=== PATIENT | female | born 1990 | race Caucasian/White ===

== ENCOUNTER 2018-04-15 05:30 | Inpatient (IN) | payer SELFPAY ==
[2018-04-15] MEDS ORDERED: MISOPROSTOL 200 MCG TAB PR ×2 (06:30→10:00)
[2018-04-15] MEDS ORDERED: CARBOPROST 250 MCG INJ IM ×2 (06:30→10:00)
[2018-04-15] MEDS ORDERED: OXYTOCIN 30 UNITS/LR 500 ML IV ×3 (06:30→10:00)
[2018-04-15] MEDS ORDERED: CEFAZOLIN 2 GM/50 ML (PMX) 50 ML IVPB (06:30)
[2018-04-15] MEDS ORDERED: METHYLERGONOVINE 0.2 MG INJ IM ×2 (06:30→10:00)
[2018-04-15] MEDS: LACTATED RINGER'S 1,000 ML IV ×2 (06:49→16:22)
[2018-04-15 06:53] LABS: ADD MAN DIFF? NO
[2018-04-15 06:56] LABS: WHITE BLOOD COUNT 13.9 10^3/ul (4.8-10.8)
[2018-04-15 06:56] LABS: BASOPHIL # 0.1 10^3/ul (0.0-0.1); BASOPHILS % 0.4 % (0.0-2.0); EOSINOPHILS # 0.2 10^3/ul (0.0-0.5); EOSINOPHILS % 1.4 % (0.0-7.0); HEMOGLOBIN 9.9 g/dl (12.0-16.0); LYMPHOCYTES # 3.1 10^3/ul (0.8-2.9); LYMPHOCYTES % 22.5 % (15.0-51.0); MEAN CORPUSCULAR HGB CONC 31.9 g/dl (32.0-37.0); MEAN CORPUSCULAR VOLUME 84.7 fl (82.0-101.0); MEAN PLATELET VOLUME 9.2 fl (7.4-10.4); MONOCYTE # 0.9 10^3/ul (0.3-0.9); MONOCYTES % 6.6 % (0.0-11.0); NEUTROPHIL # 9.4 10^3/ul (1.6-7.5); NEUTROPHILS % 67.9 % (39.0-77.0); PLATELET COUNT 298 10^3/UL (140-415); RED BLOOD COUNT 3.66 10^6/ul (4.20-5.40); RED CELL DISTRIBUTION WIDTH 14.6 % (11.5-14.5)
[2018-04-15] MEDS ORDERED: hydrALAzine 20 MG INJ IV (07:00)
[2018-04-15] MEDS ORDERED: FENTAnyl 50 MCG/ML VIAL IV ×3 (07:00→12:00)
[2018-04-15] MEDS ORDERED: ALBUMIN HUMAN 5% 250 ML IV (07:00)
[2018-04-15] MEDS ORDERED: ONDANSETRON 4 MG INJ IV ×3 (07:00→12:00)
[2018-04-15] MEDS ORDERED: NALOXONE (0.4 MG/ML) INJ IV (07:00)
[2018-04-15] MEDS ORDERED: LABETALOL HCL 20MG INJ IV (07:00)
[2018-04-15] MEDS ORDERED: HYDROmorphONE 0.5 MG/0.5 ML SYG IV (07:00)
[2018-04-15] MEDS ORDERED: ZOLPIDEM 5 MG TAB PO (07:00)
[2018-04-15] MEDS ORDERED: DIPHENHYDRAMINE 50 MG INJ IV ×3 (07:00→12:00)
[2018-04-15] MEDS ORDERED: KETOROLAC 30 MG INJ IV ×2 (07:00→12:00)
[2018-04-15] MEDS ORDERED: PROPOFOL 200 MG INJ (07:00)
[2018-04-15] MEDS ORDERED: HYDROmorphONE 1 MG/5 ML IV SYRINGE IV ×5 (07:00→12:00)
[2018-04-15] MEDS ORDERED: BUPIVACAINE 0.75%/DEXT (SPINAL) 2 ML INJ ×2 (07:17→07:27)
[2018-04-15] MEDS ORDERED: OXYTOCIN 10 UNIT INJ (07:17)
[2018-04-15] MEDS ORDERED: EPINEPHrine 1 MG INJ (07:17)
[2018-04-15] MEDS ORDERED: morphine SULFATE/PF (10 MG/10 ML) INJ (07:17)
[2018-04-15 07:30] LABS: INR 0.93; PROTIME 12.6 Sec (11.9-14.9)
[2018-04-15] MEDS: FAMOTIDINE 20 MG INJ IV (07:37)
[2018-04-15] MEDS: ONDANSETRON 4 MG INJ IV (07:38)
[2018-04-15] MEDS: METOCLOPRAMIDE 10 MG INJ IV (07:38)
[2018-04-15 08:45] LABS: HEPATITIS B SURFACE ANTIGEN NEGATIVE (NEGATIVE)
[2018-04-15] MEDS: NICOTINE (14 MG/24 HR) PATCH TRANSDERM (10:44)
[2018-04-15] MEDS: HYDROmorphONE 1 MG/5 ML IV SYRINGE IV (11:48)
[2018-04-15] MEDS ORDERED: LEVALBUTEROL (NEB) 1.25 MG/0.5 ML AMP HHN (12:00)
[2018-04-15] MEDS: KETOROLAC 30 MG INJ IV ×2 (13:18→17:19)
[2018-04-15] MEDS: FENTAnyl 50 MCG/ML VIAL IV (14:15)
[2018-04-15 15:19] LABS: RAPID PLASMA REAGIN NONREACTIVE (NR)
[2018-04-15] MEDS: OXYTOCIN 30 UNITS/LR 500 ML IV (15:25)
[2018-04-15] MEDS: IBUPROFEN 800 MG TAB PO ×2 (16:22→18:00)
[2018-04-15] MEDS: HYDROmorphONE 0.5 MG/0.5 ML SYG IV (18:48)
[2018-04-16] MEDS: KETOROLAC 30 MG INJ IV (01:35)
[2018-04-16] MEDS: LACTATED RINGER'S 1,000 ML IV ×2 (03:43→12:48)
[2018-04-16] MEDS: OXYCODONE/ACETAMINOPHEN (5/325) TAB PO ×6 (07:52→22:09)
[2018-04-16] MEDS: IBUPROFEN 800 MG TAB PO ×4 (09:00→17:39)
[2018-04-16 09:29] LABS: ADD MAN DIFF? NO
[2018-04-16 09:32] LABS: BASOPHIL # 0.1 10^3/ul (0.0-0.1); BASOPHILS % 0.4 % (0.0-2.0); EOSINOPHILS # 0.1 10^3/ul (0.0-0.5); EOSINOPHILS % 0.5 % (0.0-7.0); HEMATOCRIT 28.9 % (37.0-47.0); LYMPHOCYTES # 2.2 10^3/ul (0.8-2.9); LYMPHOCYTES % 16.3 % (15.0-51.0); MEAN CORPUSCULAR HEMOGLOBIN 26.7 pg (29.0-33.0); MEAN CORPUSCULAR HGB CONC 31.1 g/dl (32.0-37.0); MEAN CORPUSCULAR VOLUME 85.8 fl (82.0-101.0); MEAN PLATELET VOLUME 9.4 fl (7.4-10.4); MONOCYTE # 0.8 10^3/ul (0.3-0.9); MONOCYTES % 5.5 % (0.0-11.0); NEUTROPHIL # 10.4 10^3/ul (1.6-7.5); NEUTROPHILS % 76.5 % (39.0-77.0); PLATELET COUNT 290 10^3/UL (140-415); RED BLOOD COUNT 3.37 10^6/ul (4.20-5.40); RED CELL DISTRIBUTION WIDTH 14.8 % (11.5-14.5)
[2018-04-16 09:32] LABS: WHITE BLOOD COUNT 13.5 10^3/ul (4.8-10.8)
[2018-04-16] MEDS: NICOTINE (14 MG/24 HR) PATCH TRANSDERM (11:31)
[2018-04-17] MEDS: LACTATED RINGER'S 1,000 ML IV
[2018-04-17] MEDS: IBUPROFEN 800 MG TAB PO ×3 (00:52→11:46)
[2018-04-17] MEDS: OXYCODONE/ACETAMINOPHEN (5/325) TAB PO ×3 (04:25→13:12)
[2018-04-17] MEDS: NICOTINE (14 MG/24 HR) PATCH TRANSDERM (11:45)
[2018-04-17] MEDS: MEDROXYPROGESTERONE 150 MG INJ SYG IM (11:46)
== END 2018-04-17 14:10 | disposition home or self-care (01) | DRG 788 ==
LOC: L-D 05:30 → PP1 15:33
PROVIDERS: Obstetrics & Gynecology
PROC: 10D00Z1 Extraction of Products of Conception, Low, Open Approach (ICD-10-PCS; principal; 2018-04-15 07:30)
DX: O34.211 Maternal care for low transverse scar from previous cesarean delivery (principal); Z3A.39 39 weeks gestation of pregnancy; Z37.0 Single live birth
CPT/HCPCS: 85025; 85610; 85730; 86592; 86850; 86900; 86901; 87340; 90686; 99464